=== PATIENT | female | born 2000 | race Caucasian/White ===

== ENCOUNTER 2025-06-28 09:43 | Emergency (ER) | payer MEDICAID ==
[~2025-06-28] VITALS: Ht 154.9 cm; Wt 53.0 kg
[2025-06-28 09:55] VITALS: O2SAT 100
[2025-06-28] MEDS: KETOROLAC 15MG/ML VIAL IM ONE (10:31)
[2025-06-28 11:58] LABS: CLARITY URINE CLOUDY (CLEAR); COLOR URINE YELLOW (YELLOW); GLUCOSE URINE NEGATIVE (NEGATIVE); KETONES URINE NEGATIVE (NEGATIVE); LEUKOCYTE ESTERASE URINE TRACE (NEGATIVE); NITRITE URINE NEGATIVE (NEGATIVE); OCCULT BLOOD URINE 3+ (NEGATIVE); PH URINE >=9.0 (4.5-8.0); PROTEIN URINE 1+ (NEGATIVE); SPECIFIC GRAVITY URINE 1.026 (1.005-1.030); UROBILINOGEN URINE 1.0 E.U./dL (0.2-1.0)
[2025-06-28 12:18] LABS: MUCUS URINE 1+ /lpf (< = 2+); SQUAMOUS EPITHELIAL CELL URINE 2+ /lpf (RARE/1+)
[2025-06-28 12:19] LABS: BACTERIA URINE 3+; RBC URINE TNTC /hpf (0-2); WBC URINE 0-2 /hpf (0-2)
[2025-06-28] MEDS ORDERED: CEPH500C2 MT (12:39)
[2025-06-28 12:50] VITALS: BP 118/70; PULSE 71; RESP 16; TEMP 36.7; O2SAT 100
== END 2025-06-28 12:53 | disposition home or self-care (01) ==
LOC: ER 10:09
DX: N39.0 Urinary tract infection, site not specified (principal); R11.0 Nausea
CPT/HCPCS: 99285; 74176; 81003; 81025; 96372; J1885